=== PATIENT | female | born 1975 ===

== ENCOUNTER 2021-10-07 05:50 | Day surgery (SDC) | payer OTHER ==
[~2021-10-07 05:50] MED LIST: ULTRAM50 MG PO
[2021-10-07] MEDS ORDERED: OXYC1TAB9 PO (14:00)
[2021-10-07] MEDS ORDERED: DUI500 PO (14:00)
== END 2021-10-07 15:39 | disposition home or self-care (01) ==
LOC: CIR.AMB 05:50
PROVIDERS: ATTEND Orthopaedic Surgery Sports Medicine
DX: M75.02 Adhesive capsulitis of left shoulder (principal); Z86.16 Personal history of COVID-19; M19.90 Unspecified osteoarthritis, unspecified site; F41.9 Anxiety disorder, unspecified; E66.9 Obesity, unspecified; Z20.822 Contact with and (suspected) exposure to COVID-19

== ENCOUNTER 2023-05-04 10:15 | Inpatient (IN) | payer OTHER ==
[~2023-05-04] VITALS: Ht 160 cm; Wt 86.2 kg
[~2023-05-04 10:15] MED LIST changes: +DUI500 PO; +OXYC1TAB9 PO
[2023-05-11] MEDS ORDERED: ESTAZOLAM2 MG (08:10)
[2023-05-11] MEDS ORDERED: DONEPEZIL HCL10 MG (08:10)
[2023-05-11] MEDS ORDERED: CYCLOBENZAPRINE10 MG (08:10)
[2023-05-11] MEDS ORDERED: FLONASE16 GM (08:10)
[2023-05-11] MEDS ORDERED: LORAZEPAM0.5 MG (08:10)
[2023-05-11] MEDS ORDERED: FLUOXETINE HCL20 MG (08:10)
[2023-05-11] MEDS ORDERED: TYLENOL ARTHRI650 MG PO (08:13)
[2023-05-11 12:50] LABS: HEMATOCRIT 34.5 % (36.0-45.00); HEMOGLOBIN 11.1 g/dL (12.0-15.00); RED BLOOD COUNT 4.22 M/uL (4.00-6.00)
[2023-05-12 07:49] LABS: HEMATOCRIT 32.7 % (36.0-45.00); HEMOGLOBIN 10.6 g/dL (12.0-15.00); MEAN CELL VOLUME 80.8 fL (80.00-100.00); MEAN CORPUSCULAR HEMOGLOBIN 26.3 pg (27.00-32.0); MEAN CORPUSCULAR HGB CONC 32.5 g/dl (32.0-36.0); PLATELET COUNT 276 K/uL (150-450); RED BLOOD COUNT 4.05 M/uL (4.00-6.00); RED CELL DISTRIBUTION WIDTH 13.9 % (11.5-14.5)
[2023-05-13] MEDS ORDERED: OXYC1TAB9 PO (06:43)
[2023-05-13] MEDS ORDERED: XARELTO10 MG PO (06:43)
[2023-05-13] MEDS ORDERED: INTEGRA PLUS C1 EACH PO (06:43)
[2023-05-13] MEDS ORDERED: BACTRIM DS TAB1 EACH PO (06:43)
[2023-05-13 07:27] LABS: HEMATOCRIT 31.5 % (36.0-45.00); HEMOGLOBIN 10.4 g/dL (12.0-15.00); MEAN CELL VOLUME 79.6 fL (80.00-100.00); MEAN CORPUSCULAR HEMOGLOBIN 26.3 pg (27.00-32.0); MEAN CORPUSCULAR HGB CONC 33.1 g/dl (32.0-36.0); PLATELET COUNT 272 K/uL (150-450); RED BLOOD COUNT 3.96 M/uL (4.00-6.00); RED CELL DISTRIBUTION WIDTH 14.3 % (11.5-14.5)
== END 2023-05-13 15:37 | disposition home or self-care (01) | DRG 470 ==
LOC: O/R 05-11 06:18 → SURH 05-11 06:18
PROVIDERS: ADMIT Orthopaedic Surgery Sports Medicine; ATTEND Orthopaedic Surgery Sports Medicine
PROC: 0SRC0J9 Replacement of Right Knee Joint with Synthetic Substitute, Cemented, Open Approach (ICD-10-PCS; principal; 2023-05-11 11:30)
DX: M17.11 Unilateral primary osteoarthritis, right knee (principal)